=== PATIENT | female | born 1990 | race Caucasian/White ===

== ENCOUNTER 2019-05-27 09:42 | Emergency (ER) | payer BC ==
--- OUTSIDE RECORDS SUMMARY | 2019-05-27 09:50 | XMS REPORT | Summary of Care ---
:1990 Author Organization [facility] Address [address] [place] [address] Care Team Providers Name Role Phone Priyanka Dillard NP Primary Care Provider Reason for Visit Reason Comments Procedure FNA Encounter Details Date Type Department Care Team Description 04/29/2019 Office Visit [facility], Thyroid nodule (Primary Dx); [facility] Daron Moreno MD Subclinical hyperthyroidism [address] [id number] [phone] Allergies No Known Allergiesdocumented as of this encounter (statuses as of 04/29/2019) Medications Medication Sig Dispensed Refills Start Date End Date Status Cholecalciferol (VITAMIN Take 1,500 0 Active D3 PO) Int'l Units by mouth daily Sertraline HCl 50 MG Oral 0 02/20/2019 Active Tablet (ZOLOFT) Magnesium Oxide (MAG-200 Take 250 mg by 0 Active PO) mouth daily documented as of this encounter (statuses as of 04/29/2019) Active Problems Problem Noted Date Subclinical hyperthyroidism 03/11/2019 Thyroid nodule 03/11/2019 Overview: US 03/03 03/03 TFT nl, TRAb neg 05/05 FNA Right thyroid nodule: documented as of this encounter (statuses as of 04/29/2019) Social History Tobacco Use Types Packs/Day Years Used Date Never Smoker Alcohol Use Drinks/Week oz/Week Comments Not Currently Sex Assigned at Date Recorded Not on file Job Start Date Occupation Industry Not on file Not on file Not on file Travel History Travel Start Travel End No recent travel history available. documented as of this encounter Last Filed Vital Signs Vital Sign Reading Time Taken Comments Blood Pressure 118/66 04/29/2019 2:18 PM EST Pulse 84 04/29/2019 2:18 PM EST Temperature - - Respiratory Rate 17 04/29/2019 2:18 PM EST Oxygen Saturation - - Inhaled Oxygen Concentration - - Weight 69.1 kg (152 lb 5.4 oz) 04/29/2019 2:18 PM EST Height 156.6 cm (5' 1.65") 04/29/2019 2:18 PM EST Body Mass Index 28.18 04/29/2019 2:18 PM EST documented in this encounter Patient Instructions Patient InstructionsDaron Crocker MD - 04/29/2019 2:30 PM ESTPlease call your physician if you have:fever, severe pain, bleeding. Wound Care: none Medications: You can take Tylenol (Acetaminophen), ibuprofen, or Aleve, as directed on the bottle, for discomfort. Avoid taking aspirin for at least 24 hours since it interferes with clotting Diet: You may resume your previous diet. Activity: No heavy lifting (more than 20 lbs) for 24 hours. These instructions were reviewed with the patient and a written copy provided to the patient. documented in this encounter Progress Notes Daron Crocker MD - 04/29/2019 2:30 PM ESTFine Needle Aspiration of Thyroid Nodule Indication: Right thyroid nodule, 2.5 cm. Meets criteria for FNA The procedure was discussed with Ashley Nation. We discussed indications for the procedure and alternatives to the procedure. We also discussed complications such as pain, bruising, bleeding, and infection. We discussed the small rates of false negatives, false positives, indeterminate, and unsatisfactory specimen associated with FNA. The patients agreed to proceed and signed informed consent. A time out was taken. The area to be aspirated was cleaned with alcohol based antiseptic. Skin was anesthesized with ethylchloride. Using sterile technique, under ultrasound guidance, we aspirated nodule RIGHT THYROID NODULE. We saw the needle in the nodule/s and used a to-and-fro technique. The patient tolerated the procedure well. no complications were noted. We asked the patient that to take Tylenol if there is pain but to avoid aspirin, ibuprofen, or Aleve. We asked the patient not to do any heavy lifting (more than 20 lbs) for 24 hours. Passes: 4 Nodule was cystic. We removed 4 ml of dark fluid. documented in this encounter Plan of Treatment Date Type Specialty Care Team Description 10/12/2019 Office Visit Endocrinology Daron Crocker MD [address] [place] [address] [phone] Name Type Priority Associated Diagnoses Order Schedule Fine Needle Pathology and Routine Thyroid nodule Ordered: 04/29/2019 Aspirate Cytology TSH Lab Routine Thyroid nodule 1 Occurrences Subclinical starting 04/29/2019 hyperthyroidism until 10/28/2019 T4, free Lab Routine Thyroid nodule 1 Occurrences Subclinical starting 04/29/2019 hyperthyroidism until 10/28/2019 T3, free Lab Routine Thyroid nodule 1 Occurrences Subclinical starting 04/29/2019 hyperthyroidism until 10/28/2019 Health Maintenance Due Date Last Done Comments MMR Vaccines (1 of 1 - Standard 10/21/1992 series) Varicella Vaccines (1 of 2 - 10/21/1992 2-dose childhood series) DTaP,Tdap,and Td Vaccines (1 - 10/21/1998 Tdap) HIV Screening 10/21/2004 Cervical Cancer Screening 3 years 10/21/2012 Influenza Vaccine 12/14/2018 Pneumococcal Vaccine: 65+ Years (1 10/21/2056 of 2 - PCV13) HIB Vaccines Aged Out No longer eligible based on patient's age to complete this topic Hepatitis A Vaccines Aged Out No longer eligible based on patient's age to complete this topic Hepatitis B Vaccines Aged Out No longer eligible based on patient's age to complete this topic IPV Vaccines Aged Out No longer eligible based on patient's age to complete this topic Pneumococcal Vaccine: Pediatrics Aged Out No longer eligible based on (0 to 5 Years) and At-Risk patient's age to complete this Patients (6 to 64 Years) topic documented as of this encounter Results Not on filedocumented in this encounter Visit Diagnoses Diagnosis Thyroid nodule - Primary Nontoxic uninodular goiter Subclinical hyperthyroidism Thyrotoxicosis without mention of goiter or other cause, without mention of thyrotoxic crisis or storm documented in this encounter
[2019-05-27 09:59] VITALS: BP 120/75
--- NOTE | 2019-05-27 10:16 | UC ---
Throat Pain/Nasal Rodriguez HPI - HPI Summary HPI Summary: 28-year-old female with a sore throat over the past 3 days. She denies any fever or chills. - History of Current Complaint Chief Complaint: UCGeneralIllness Stated Complaint: THROAT COMPLAINT Time Seen by Provider: 05/27/19 10:03 Hx Obtained From: Patient Hx Last Menstrual Period: 03/23/18 ?: No Onset/Duration: Gradual Onset Severity: Mild Pain Intensity: 3 Cough: None Associated Signs & Symptoms: Positive: Negative Related History: Seasonal Allergies - Allergies/Home Medications Allergies/Adverse Reactions: Allergies Allergy/AdvReac Type Severity Reaction Status Date / Time No Known Allergies Allergy Verified 05/27/19 09:58 Home Medications: Home Medications Cholecalciferol TAB* [Vitamin D TAB*] 1,500 unit PO BEDTIME 03/29/18 [History Confirmed 05/27/19] Magnesium [Magnesium Elemental] 250 mg PO BEDTIME 05/27/19 [History Confirmed ] [place]-3 Fatty Acids/Fish Oil [Fish Oil 1,000 mg Softgel] 1 each PO BEDTIME 05/26 [History Confirmed 05/27/19] Sertraline* [Zoloft*] 50 mg PO BEDTIME 05/27/19 [History Confirmed 05/27/19] PMH/Surg Hx/FS Hx/Imm Hx Previously Healthy: Yes Other History Of: Negative For: HIV, Hepatitis B, Hepatitis C, Anticoagulant Therapy - Surgical History Surgical History: None - Family History Known Family History: Positive: Respiratory Disease - Social History Occupation: Employed Full-time Alcohol Use: None Substance Use Type: None Smoking Status (MU): Never Smoked Tobacco Review of Systems All Other Systems Reviewed And Are Negative: Yes ENT: Positive: Sore Throat - review he is when he got Is Patient Immunocompromised?: No Physical Exam Triage Information Reviewed: Yes Appearance: Well-Appearing, No Pain Distress, Well-Nourished Vital Signs: Initial Vital Signs Temp 98.5 F 05/27/19 09:54 Pulse 79 05/27/19 09:54 Resp 18 05/27/19 09:54 BP 120/75 05/27/19 09:54 Pulse Ox 100 05/27/19 09:54 Vital Signs Reviewed: Yes Eyes: Positive: Conjunctiva Clear ENT: Positive: Pharynx normal, TMs normal, Uvula midline Neck: Positive: Supple, Nontender, No Lymphadenopathy Respiratory: Positive: Lungs clear, Normal breath sounds, No respiratory distress, No accessory muscle use Cardiovascular: Positive: RRR, No Murmur, Pulses Normal, Brisk Capillary Refill Musculoskeletal Exam: Normal Neurological Exam: Normal Psychological Exam: Normal Skin Exam: Normal Throat Pain/Nasal Course/Dx - Course Course Of Treatment: Rapid strep test: Negative Patient is comfortable here and in no distress. - Differential Dx/Diagnosis Provider Diagnosis: Pharyngitis Discharge ED - Sign-Out/Discharge Documenting (check all that apply): Patient Departure All imaging exams completed and their final reports reviewed: No Studies - Discharge Plan Condition: Good Disposition: HOME Patient Education Materials: Pharyngitis (ED) Referrals: Priyanka Dillard NP [Primary Care Provider] - Additional Instructions: Increase fluids, warm saltwater gargles, throat lozenges. Follow up with your primary care provider in 3 or 4 days if no improvement. - Billing Disposition and Condition Condition: GOOD Disposition: Home
== END 2019-05-27 10:30 | disposition home or self-care (01) ==
LOC: UCCORT 09:42
DX: J02.9 Acute pharyngitis, unspecified (principal)
CPT/HCPCS: 87651; 99211; G0463